=== PATIENT | female | born 1995 | race Caucasian/White ===

== ENCOUNTER → 2021-05-28 | Outpatient (CLI) | payer BC ==
[2021-05-29 11:14] LABS: RHEUMATOID ARTHRITIS FACTOR <10.0 IU/mL (<14.0)
== END ==
LOC: LAB 11:24
PROVIDERS: Nurse Practitioner Family
DX: M25.50 Pain in unspecified joint (principal); M79.10 Myalgia, unspecified site
CPT/HCPCS: 36415; 82550; 82728; 83520; 85652; 86140; 86200; 86431

== ENCOUNTER → 2022-01-14 | Outpatient (CLI) | payer BC | LOC: LAB 11:08 | DX: Z20.822 Contact with and (suspected) exposure to COVID-19 (principal) | CPT/HCPCS: U0003 ==

== ENCOUNTER → 2022-02-04 | Outpatient (CLI) | payer BC ==
[~2022-02-04] VITALS: Ht 154.9 cm; Wt 67.1 kg
[2022-02-04 12:38] LABS: HEMOGLOBIN 9.2 gm/dl (12.3-15.3); RED BLOOD COUNT 4.24 M/UL (4.00-5.10); WHITE BLOOD COUNT 5.3 K/UL (4.5-11.0)
[2022-02-04 12:51] LABS: BUN/CREATININE RATIO 19 (0-10)
== END ==
LOC: OPSV 11:47
PROVIDERS: Physician Assistant
DX: K50.80 Crohn's disease of both small and large intestine without complications (principal)
CPT/HCPCS: 80053; 85025; 86140; 96375; 96413; 96415; J1720; J1745; J7030

== ENCOUNTER → 2022-03-19 | Outpatient (CLI) | payer BC ==
[~2022-03-19] VITALS: Ht 154.9 cm; Wt 67.1 kg
[2022-03-19 10:05] LABS: HEMOGLOBIN 10.1 gm/dl (12.3-15.3); RED BLOOD COUNT 4.6 M/UL (4.00-5.10); WHITE BLOOD COUNT 2.9 K/UL (4.5-11.0)
[2022-03-19 10:29] LABS: BUN/CREATININE RATIO 22 (0-10)
== END ==
LOC: OPSV 09:00
PROVIDERS: Physician Assistant
DX: K50.80 Crohn's disease of both small and large intestine without complications (principal)
CPT/HCPCS: 80053; 85025; 86140; 96375; 96413; 96415; J1720; J1745; J7030

== ENCOUNTER → 2022-04-02 | Outpatient (CLI) | payer BC ==
[2022-04-02 15:01] LABS: HEMOGLOBIN 10.1 gm/dl (12.3-15.3); RED BLOOD COUNT 4.41 M/UL (4.00-5.10); WHITE BLOOD COUNT 4.9 K/UL (4.5-11.0)
== END ==
LOC: LAB 14:38
PROVIDERS: Physician Assistant
DX: K50.80 Crohn's disease of both small and large intestine without complications (principal); D72.819 Decreased white blood cell count, unspecified
CPT/HCPCS: 36415; 85025